=== PATIENT | female | born 1985 | race Caucasian/White ===

== ENCOUNTER 2024-07-31 15:13 | Outpatient (CLI) | payer BC, SELFPAY ==
--- NOTE | ~2024-07-31 | XR_ITS ---
Lumbosacral Spine: AP, oblique, and lateral views, with neutral, flexion, and extension positioning Clinical History: Pain Findings: The normal lordotic curve is maintained. The vertebral bodies and posterior elements are i ntact. The intervertebral disc spaces are preserved. No instability evident on flexion or extension. There is advanced facet arthropathy at L4-L5 and L5-S1. There is moderate facet arthropathy at the u pper lumbar spine. The sacroiliac joints are normally outlined. Impression: Facet joint degenerative changes, as above. No other significant findings. Reviewed, dictated and finalized at location M. Impression: Facet joint degenerative changes, as above. No other significant findings.
== END 2024-07-31 15:14 | disposition home or self-care (01) ==
LOC: MICIMG 15:17
PROVIDERS: PCP Nurse Practitioner Family; Visit Provider Nurse Practitioner Family
DX: M47.816 Spondylosis without myelopathy or radiculopathy, lumbar region (principal); M47.817 Spondylosis without myelopathy or radiculopathy, lumbosacral region
CPT/HCPCS: 72114